=== PATIENT | male | born 1970 | race Caucasian/White ===

== ENCOUNTER → 2016-11-18 | Outpatient (CLI) | payer OTHER ==
--- NOTE | 2016-11-18 07:41 | MR ---
EXAMINATION TYPE: MR lumbar spine wo con DATE OF EXAM: 11/18/2016 6:39 AM COMPARISON: NONE HISTORY: Low back pain CONTRAST: 0 mL intravenous MultiHance. TECHNIQUE: Multiplanar, multisequence images of the lumbar spine were acquired. FINDINGS: L5-S1: There is a left paracentral to left lateral disc herniation. The small disc herniation as comp ression and displacement of the S1 nerve root. Correlate with radicular symptoms. Mild facet degenera tive changes present. There is moderate left foraminal narrowing. Minimal disc space narrowing may b e present. Disc hydration levels normal. . L4-L5: No significant disc bulge or disc herniation. No spinal canal stenosis. No foraminal stenosi s. . L3-L4: No significant disc bulge or disc herniation. No spinal canal stenosis. No foraminal stenosi s. . L2-L3: No significant disc bulge or disc herniation. No spinal canal stenosis. No foraminal stenosi s. . L1-L2: No significant disc bulge or disc herniation. No spinal canal stenosis. No foraminal stenosi s. . T12-L1: No significant disc bulge or disc herniation. No spinal canal stenosis. No foraminal stenos is. . Cord terminates at the L1 level. IMPRESSION: 1. Left paracentral to left lateral disc herniation L5-S1 with compression and displacement of the ex iting S1 nerve root. Correlate with radicular symptoms.
== END | disposition home or self-care (01) ==
LOC: RADMRIMAIN 06:04
PROVIDERS: ATTEND Orthopaedic Surgery
DX: M51.27 Other intervertebral disc displacement, lumbosacral region (principal)
CPT/HCPCS: 72148